=== PATIENT | male | born 1935 | race Caucasian/White ===

== ENCOUNTER 2019-08-31 16:10 | Inpatient (IN) ==
[2019-08-31] MEDS ORDERED: SALINE LOCK IV FLUID XX ONE (17:10)
[2019-08-31] MEDS ORDERED: TYLENOL PO PRN (17:10)
[2019-08-31] MEDS ORDERED: SODIUM CHLORIDE 0.9% INJ PRN (17:10)
[2019-08-31] MEDS ORDERED: PHENERGAN IV PRN (17:10)
[2019-08-31] MEDS ORDERED: SOLU-MEDROL IV ONE (17:10)
[2019-08-31 17:49] LABS: BASO# 0.14 X1000 (0.0-0.2); BASO% 1.4 % (0.0-0.8); EOS# 0.44 X1000 (0.0-0.7); EOS% 4.5 % (0.0-10.0); HEMATOCRIT 27.3 % (42.0-52.0); HEMOGLOBIN 8.1 g/dL (14.0-18.0); IMM GRAN# 0.04 X1000 (0.0-0.04); IMM GRAN% 0.4 % (0.0-0.5); LYMPH# 2.06 X1000 (1.2-3.4); LYMPH% 20.9 % (20.5-51.1); MCHC 29.7 g/dL (33-37); MCV 104.6 FL (81-99); MONO# 1.01 X1000 (0.11-0.59); MONO% 10.3 % (1.7-9.3); MPV 10.8 FL (7.4-10.4); NEUT# 6.16 X1000 (1.4-6.5); NEUT% 62.5 % (42.2-75.2); PLT 189 X1000 (130-400); RBC 2.61 XMIL (4.7-6.1); RDW 14.9 % (11.5-14.5); WBC 9.85 X1000 (4.8-10.8)
[2019-08-31 17:57] LABS: CALCIUM 8.8 mg/dL (8.8-10.2); CREATININE 1.4 mg/dL (0.7-1.2); POTASSIUM 4.6 mmol/L (3.5-5.1)
--- NOTE | 2019-08-31 18:10 | Diag Imaging Result Doc PS360 ---
EXAM: CHEST-2 VIEWS 08/31/2019 HISTORY: COPD TECHNIQUE: PA and lateral chest COMMENT: There our platelike opacities present in the lingula and adjacent to the minor fissure on the right. These apparently were also present on 06/21/2016 and may be due to fibrosis. The pleural effusions which were present previously have apparently resolved. There is pleural thickening on the right which was also present previously. There is a granuloma in the left apex. IMPRESSION: Pulmonary and pleural fibrotic changes. No evidence of acute disease. Electronically signed by Cristo Burns 08/31/2019 6:07 PM
[2019-08-31 18:12] LABS: BASO# 0.06 X1000 (0.0-0.2); BASO% 0.5 % (0.0-0.8); EOS# 0.41 X1000 (0.0-0.7); EOS% 3.7 % (0.0-10.0); HEMATOCRIT 26.9 % (42.0-52.0); HEMOGLOBIN 8.2 g/dL (14.0-18.0); IMM GRAN# 0.07 X1000 (0.0-0.04); IMM GRAN% 0.6 % (0.0-0.5); LYMPH# 2.71 X1000 (1.2-3.4); LYMPH% 24.6 % (20.5-51.1); MCH 30.6 PG (27-31); MCHC 30.5 g/dL (33-37); MCV 100.4 FL (81-99); MONO# 0.68 X1000 (0.11-0.59); MONO% 6.2 % (1.7-9.3); MPV 9.6 FL (7.4-10.4); NEUT# 7.09 X1000 (1.4-6.5); NEUT% 64.4 % (42.2-75.2); PLT 505 X1000 (130-400); RBC 2.68 XMIL (4.7-6.1); RDW 14.6 % (11.5-14.5); WBC 11.02 X1000 (4.8-10.8)
[2019-08-31] MEDS: ROCEPHIN 1 GM in NS 50 ML IV SCH (18:18)
[2019-08-31] MEDS: LOVENOX SUBQ SCH (18:18)
[2019-08-31 18:21] LABS: ALLEN TEST YES; BE -0.7 mmoll (-3.0-3.0); BLOOD TYPE ARTERIAL; HCO3-(ACT) 24.4 mmoll (20.0-26.0); METHB 0.3 % (0.0-1.5); O2(CT) 8.8 mL/dL (15.0-23.0); O2HB 97.6 % (95.0-99.0); PCO2(98.6) 27 mmHg (35-45); PO2(98.6) 137 mmHg (60-100); SAMPLE BLOOD; SAO2 99.9 % (95.0-100.0); THB 6.2 g/dL (11.5-17.4); pH(98.6) 7.52 (7.35-7.45)
[2019-08-31 18:23] LABS: MODALITY ROOM AIR
[2019-08-31] MEDS ORDERED: NS 500 ML IV ONE (19:23)
[2019-08-31] MEDS: HUMULIN R SUBQ SCH (21:11)
[2019-08-31] MEDS: DUONEB (A & A) INH SCH ×2 (21:18→23:27)
[2019-08-31] MEDS: SYMBICORT 160/4.5 MICROGM INHALER INH SCH (21:19)
[2019-08-31] MEDS: NORCO-10 PO PRN (22:49)
[2019-09-01] MEDS: DUONEB (A & A) INH SCH ×6 (04:21→23:04)
[2019-09-01] MEDS: HUMULIN R SUBQ SCH ×4 (06:19→21:40)
[2019-09-01 08:21] LABS: HEMATOCRIT 19.9 % (42.0-52.0); HEMOGLOBIN 5.8 g/dL (14.0-18.0); MCH 29.3 PG (27-31); MCHC 29.1 g/dL (33-37); MCV 100.5 FL (81-99); MPV 9.7 FL (7.4-10.4); RBC 1.98 XMIL (4.7-6.1); RDW 14.4 % (11.5-14.5); WBC 9.13 X1000 (4.8-10.8)
[2019-09-01] MEDS ORDERED: ACTOS PO SCH (09:00)
[2019-09-01] MEDS: ASPIRIN PO SCH ×2 (09:05→12:06)
[2019-09-01] MEDS: AMARYL PO SCH (09:05)
[2019-09-01] MEDS: LOFIBRA PO SCH (09:05)
[2019-09-01] MEDS: DITROPAN XL PO SCH (09:11)
[2019-09-01] MEDS: SOLU-MEDROL IV SCH ×2 (09:11→16:19)
[2019-09-01] MEDS: ACTOS PO SCH (09:11)
[2019-09-01] MEDS: PROTONIX IV SCH (09:16)
[2019-09-01] MEDS: SODIUM CHLORIDE 0.9% INJ SCH (09:17)
--- NOTE | 2019-09-01 09:32 | PROGRESS NOTE ---
DATE: 09/01/2019 SUBJECTIVE: Mr. Judge has a history of chronic respiratory failure with hypoxia secondary to chronic COPD. He was admitted to [facility] with an acute chronic obstructive pulmonary disease exacerbation. His chest x-ray demonstrated pulmonary fibrosis and fibrotic changes, but no effusions or infiltrates were noted. He continues with shortness of breath with minimal activity, such as walking to the bathroom, nonproductive cough, and pleuritic chest pain. He continues to wheeze diffusely. He has been passing dark black bowel movements. He is not having any refractory reflux, sour brash, or dysphagia. We have ordered stools to be checked for occult blood. Blood sugars are fluctuating. Sugars are ranging from 229 to 283. His serum iron was low at 44. OBJECTIVE: Temperature 97.7 degrees, pulse 78, respirations 18, BP 153/53. CV: Regular rate and rhythm. Lungs: Diffuse end expiratory wheezing with forced expiration. Abdomen: Soft and nontender with active bowel sounds. Extremities: Without edema. ASSESSMENT AND PLAN: 1. Chronic respiratory failure with hypoxia secondary to chronic obstructive pulmonary disease with acute COPD exacerbation. He continues with mild shortness of breath, cough, and diffuse wheezing. Sats are ranging from 98 to 100 percent on 2 L of O2. We will continue supplemental O2, Symbicort 160/4.5 two puffs b.i.d., methylprednisolone 80 mg IV q.8 hours and DuoNeb nebulizer treatments. 2. Type 2 rhf-jdhkgab-hqqhcgqtt diabetes mellitus. I suspect that his blood sugars are trending upward due to the steroids. We will continue an 1800 calorie ADA diet, pattern sugars, and Humulin R sliding scale. We will continue Amaryl and Actos. 3. Acute blood loss anemia His HGB and HCT were 5.9 and 19 this am. Serum iron was 44. I will begin Pantoprazole 40mg iv daily, type and screen, and transfuse 2 units of packed red cells. I will consult Dr. Langston for consideration of an EGD. cc: Darien De La Torre MD [facility]
[2019-09-01 10:27] LABS: INR 4.13; PTT 42.6 Seconds (22.3-41.8)
[2019-09-01 11:17] LABS: PROTIME 41.3 Seconds (11.0-16.0)
[2019-09-01] MEDS: SYMBICORT 160/4.5 MICROGM INHALER INH SCH ×2 (11:18→19:30)
[2019-09-01] MEDS: LOVENOX SUBQ SCH (18:47)
[2019-09-01] MEDS: ROCEPHIN 1 GM in NS 50 ML IV SCH (18:52)
--- NOTE | 2019-09-01 21:17 | GASTROENTEROLOGY CONSULTATION ---
DATE: 09/01/2019 REASON FOR CONSULTATION: Anemia. HISTORY OF PRESENT ILLNESS: This is an 83-year-old male who has been seen in our office, but not since his last colonoscopy in 2010. Patient has a history of colon cancer diagnosed in 1999. He had a subtotal colectomy. He had followed routinely for his followup colonoscopies. His last one was in 2010 with a finding of 1 polyp in the rectum that was a hyperplastic polyp. At that time, he was recommended to have a followup colonoscopy in 3 years, but the patient declined. He was then notified the next year and the patient also declined that repeat colonoscopy, and we had not seen him back in the office since his colonoscopy in 2010. The patient does have history of COPD. Apparently, he has had an exacerbation. Patient states he actually ran out of his home oxygen, had increasing shortness of breath, and came in for admission. On evaluation, he was found to have anemia. Patient does report having flu symptoms about 2 weeks ago. He had some episodes of constipation. He had also reported seeing black stools over the last 10 to 14 days. He has noticed occasional dizziness. He does take Coumadin and aspirin. His last Coumadin was Friday evening. The patient currently denies abdominal pain. No reported reflux or heartburn. No reported dysphagia. Again, he had noticed some dark stools. Hemoccult stool test today was positive. He does have orders to receive 2 units of packed red blood cells. Today, his PT/INR was elevated, PT 41.3, INR 4.13, PTT 42.6. Patient's Coumadin is currently on hold. He did receive a Lovenox injection last night. PAST MEDICAL HISTORY: 1. History of colon cancer, diagnosed in 1999; last colonoscopy in 2010 with findings of 1 polyp in the rectum. 2. History of COPD. 3. Asthma. 4. Diabetes. 5. History of prostate cancer. 6. History of kidney stones. 7. Macular degeneration. 8. Cataracts. SURGICAL HISTORY: 1. Subtotal colectomy in 1999. 2. Last colonoscopy in 2010. 3. History of cataract surgery. ALLERGIES: Sulfonamide antibiotics causing hives. HOME MEDICATIONS: 1. Brovana nebulizer inhaler every 12 hours. 2. Aspirin 81 mg daily. 3. Fenofibrate 160 daily. 4. Gabapentin 300 mg daily. 5. Glimepiride 2 mg daily in the morning. 6. Glimepiride 1 mg in the evening. 7. Ditropan 10 mg daily. 8. Actos 5 mg daily. 9. Coumadin 5 mg every night. SOCIAL HISTORY: He quit tobacco use in 1993. He also quit alcohol use. He is . FAMILY HISTORY: Reported family history of tuberculosis in his mother and heart disease. REVIEW OF SYSTEMS: Per History of Present Illness. PHYSICAL EXAMINATION: Vital Signs: Temperature 97.6 degrees, pulse 70, respirations 16, blood pressure 137/42. General: Patient was awake and alert at the time of my evaluation. He is very oriented and is aware of his history. He is in no acute distress. HEENT: Normocephalic, atraumatic. Pupils equal, round, reactive to light. Sclerae nonicteric. Respiratory: Some decreased breath sounds. Otherwise, no wheezing noted at this time. Abdomen: Soft, obese. Positive bowel sounds. Extremities: With maybe mild lower extremity edema noted. Neurologic: Cranial nerves 2 through 12 grossly intact. Patient is awake, alert, oriented to person, place, and time. DIAGNOSTIC RESULTS/LABORATORY: Hematology: WBC 9.13, hemoglobin 5.8, hematocrit 19.9. On admission on 08/31/2019, his hemoglobin and hematocrit were 8.2 and 26.9. MCV 100.5, platelets 416,000. Coagulation: Protime 41.3, INR 4.13, and PTT 42.6. The patient states he has had recent Coumadin level drawn. I am not sure of the exact date, but he said at that time his INR was around 2. Chemistry: Sodium 137, potassium 4.6, chloride 107, CO2 22, BUN 36, creatinine 1.4, glucose 112, calcium 8.8, iron 44. IMAGING: Chest x-ray on 08/31/2019 showed pulmonary and pleural fibrotic changes, otherwise no evidence of acute disease. ASSESSMENT AND PLAN: 1. Chronic obstructive pulmonary disease exacerbation. Patient is on oxygen. His respiratory status has improved. 2. Anemia with a significant drop in his hemoglobin and hematocrit since yesterday. The patient has reported some dark stools. His iron is low. Patient's last colonoscopy was in 2010. He has history of colon cancer. I do not see record of an esophagogastroduodenoscopy. 3. History of colon cancer with last colonoscopy in 2010. Patient was offered a repeat colonoscopy at 3 years and the following year, and patient declined due to his age and him not having problems at the time. 4. Patient has orders to receive 2 units of packed red blood cells. Hold Coumadin. Will repeat his PT/INR in the morning. Depending on those results, we may proceed with esophagogastroduodenoscopy. I have discussed esophagogastroduodenoscopy procedure along with benefits and risks with the patient, and he wishes to proceed if able. I have discussed this case with Dr. Langston. Thank you for this consultation. Dictated by LEDA Yeager for Bob Langston MD cc: LEDA Lozano MD M. Neel Roberts, MD MTDD
[2019-09-01] MEDS: DESYREL PO PRN (21:40)
[2019-09-02] MEDS: SOLU-MEDROL IV SCH ×3 (01:30→17:33)
[2019-09-02] MEDS: DUONEB (A & A) INH SCH ×6 (05:00→23:25)
[2019-09-02] MEDS: HUMULIN R SUBQ SCH ×5 (06:21→23:55)
[2019-09-02] MEDS: SYMBICORT 160/4.5 MICROGM INHALER INH SCH ×2 (08:04→20:04)
[2019-09-02 08:44] LABS: HEMATOCRIT 25.4 % (42.0-52.0); HEMOGLOBIN 8.2 g/dL (14.0-18.0)
[2019-09-02 08:56] LABS: INR 3.39; PROTIME 35.3 Seconds (11.0-16.0)
[2019-09-02 09:08] LABS: CALCIUM 8.6 mg/dL (8.8-10.2); CREATININE 1.2 mg/dL (0.7-1.2)
[2019-09-02] MEDS: SODIUM CHLORIDE 0.9% INJ SCH (09:11)
[2019-09-02] MEDS: PROTONIX IV SCH (09:11)
--- NOTE | 2019-09-02 10:15 | PROGRESS NOTE ---
DATE: 09/02/2019 SUBJECTIVE: Mr. Judge had a history of acute blood loss anemia. On 09/01/2019, his hemoglobin and hematocrit were 5.8 and 19.9. He was given 2 units of packed red blood cells. Hemoglobin and hematocrit were 8.2 and 25.4 this morning. He denies any reflux, sour brash, dysphagia, or further episodes of melena. He has an EGD scheduled for this morning. He has a history of chronic respiratory failure with hypoxia, on nocturnal home oxygen, and was admitted with an acute COPD exacerbation. He is breathing more comfortably. He is maintaining O2 saturations of 96% to 99% on 2 L of oxygen. He has less shortness of breath with ambulation. His cough has improved significantly. OBJECTIVE: Vial Signs: Temperature 98.4 degrees, pulse 66, respirations 14, BP 123/58. CV: Regular rate and rhythm. Lungs: Occasional end-expiratory wheezing with forced expiration, but overall has improved air movement. Abdomen: Soft, nontender, with active bowel sounds. ASSESSMENT AND PLAN: 1. Acute blood loss anemia. He was transfused 2 units of packed red blood cells. His hemoglobin and hematocrit ellie appropriately. There does not seem to be any further oozing at this time or additional blood loss. He is scheduled for an esophagogastroduodenoscopy today. We will continue pantoprazole 40 mg intravenously daily. 2. Chronic respiratory failure with hypoxia with acute chronic obstructive pulmonary disease exacerbation. We will continue supplemental oxygen, DuoNeb nebulizer treatments, and I will reduce the dosage of Solu-Medrol to 40 mg intravenously every 8 hours. cc: Darien De La Torre MD
[2019-09-02] MEDS: AMARYL PO SCH (10:53)
[2019-09-02] MEDS: ASPIRIN PO SCH (10:53)
[2019-09-02] MEDS: DITROPAN XL PO SCH (10:53)
[2019-09-02] MEDS: LOFIBRA PO SCH (10:54)
[2019-09-02] MEDS: ACTOS PO SCH (10:54)
[2019-09-02] MEDS ORDERED: XYLOCAINE-MPF 2% ONE (11:26)
[2019-09-02] MEDS ORDERED: DIPRIVAN 1% ONE (11:26)
[2019-09-02] MEDS ORDERED: NS 500 ML IV ONE (12:31)
[2019-09-02] MEDS: ROCEPHIN 1 GM in NS 50 ML IV SCH (17:33)
--- NOTE | 2019-09-02 21:04 | GASTROENTEROLOGY PROGRESS NOTE ---
DATE: 09/02/2019 SUBJECTIVE: Mr. Judge is lying in bed and reported no GI complaints. He has not had any abdominal pain, nausea or vomiting. He has been tolerating his diet well. He was scheduled for EGD today, but unfortunately his INR is not down yet. His PT was 35.3 with INR of 3.39. He has not shown any signs of active bleeding now. His hemoglobin and hematocrit have gone up to 8.2 and 25.4. OBJECTIVE: Vital signs: Temperature 98.7 degrees, pulse 70 per minute, breathing 14, blood pressure 125/45. He has a nasal cannula in place. Abdomen is slightly obese, soft, nontender. Bowel sounds audible. LABORATORY DATA: Labs reviewed, which showed hemoglobin 8.2, hematocrit 25.3. PT 35.3, INR 3.39. IMPRESSION AND PLAN: Gastrointestinal bleed secondary to Coumadin toxicity. At this point no active bleeding noted. His hemoglobin and hematocrit have improved after transfusion. He needs endoscopic evaluation to ascertain the site of his bleeding, but unfortunately his PT/INR is elevated at this point, high enough for his endoscopy to be contraindicated. There is no emergency since he is not actively bleeding now. I would let the PT/INR improve, and when it has settled down to normal we will proceed with endoscopy, either esophagogastroduodenoscopy or esophagogastroduodenoscopy with colonoscopy. It can be done as an inpatient or an outpatient, again, depending on the availability. By that time his respiratory condition will be better also. That will be better for him to be sedated at that time. I have explained to him the plan. He understands. All of his pertinent questions were answered. cc: MD Darien Owusu MD
[2019-09-03] MEDS: SOLU-MEDROL IV SCH ×3 (01:06→21:29)
[2019-09-03] MEDS: DUONEB (A & A) INH SCH ×6 (04:48→23:07)
[2019-09-03] MEDS: HUMULIN R SUBQ SCH ×4 (06:22→21:30)
[2019-09-03 07:38] LABS: HEMATOCRIT 28.1 % (42.0-52.0); HEMOGLOBIN 8.4 g/dL (14.0-18.0)
[2019-09-03 07:39] LABS: INR 2.21; PROTIME 25.1 Seconds (11.0-16.0)
[2019-09-03] MEDS: ACTOS PO SCH (08:03)
[2019-09-03] MEDS: LOFIBRA PO SCH (08:03)
[2019-09-03] MEDS: DITROPAN XL PO SCH (08:03)
[2019-09-03] MEDS: ASPIRIN PO SCH (08:03)
[2019-09-03] MEDS: PROTONIX IV SCH (08:03)
[2019-09-03] MEDS: AMARYL PO SCH (08:03)
[2019-09-03] MEDS: SODIUM CHLORIDE 0.9% INJ SCH (08:03)
--- NOTE | 2019-09-03 09:12 | Diag Imaging Result Doc PS360 ---
EXAM: CHEST-2 VIEWS HISTORY: COPD TECHNIQUE: Two views COMPARISON: 08/31/2019 FINDINGS: The lungs are hyperexpanded. No cardiomegaly. There are increased interstitial markings in the mid lungs and in the left base similar to the prior exam. No consolidation. No pleural effusions. Left apical granuloma. IMPRESSION: Emphysema with fibrosis Electronically signed by Tree Kim 09/03/2019 9:10 AM
[2019-09-03] MEDS: SYMBICORT 160/4.5 MICROGM INHALER INH SCH ×2 (09:26→19:43)
--- NOTE | 2019-09-03 12:27 | PROGRESS NOTE ---
DATE: 09/03/2019 HISTORY: Mr. Judge has a longstanding history of chronic respiratory failure with hypoxia for which he wears nocturnal home oxygen at 2 L per nasal cannula. He was admitted to [facility] with an acute chronic obstructive pulmonary disease exacerbation. Clinically, he continues to improve. He is maintaining O2 saturations of 100% on 2 L of O2. He has much less. He has less dyspnea with getting out of bed and walking to the bathroom. His cough has largely resolved. He also has acute blood loss anemia. His hemoglobin and hematocrit were 8.2 and 26.9 on admission. His hemoglobin and hematocrit dropped to 5.8 and 19.9 on 09/01. He was given. He was transfused 2 units of packed red blood cells. He has not had any further episodes of bleeding. His hemoglobin and hematocrit are stable at 8.4 and 28.1. His INR has dropped to 2.2 off the Coumadin. He denies any refractory reflux, sour brash or dysphagia. His stools are still dark. 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 Blood sugars are fluctuating on IV steroids. PHYSICAL EXAMINATION: Vital Signs: Temperature 97.6 degrees, respirations 18, BP 130/52. Cardiovascular: Regular rate and rhythm. Lungs: Distant breath sounds with increased period of expiration. I do not appreciate any significant wheezing. Abdomen: Soft, nontender, with active bowel sounds. ASSESSMENT AND PLAN: 1. Acute chronic obstructive pulmonary disease exacerbation. We will continue supplemental O2 at 2 L per nasal cannula, Symbicort 160/4.5 two puffs b.i.d. and DuoNeb nebulizer treatments. I am not sure as to whether or not he will need continuous home oxygen. I am going to check a room air oxygen level at rest. I will also check a room air oxygen level with exercise. If his O2 saturations drop below 88% at rest or with exertion that improves with supplemental O2, I believe that he would qualify for continuous home oxygen. 2. Acute blood loss anemia. I suspect that he has had an upper GI bleed. We will continue pantoprazole 40 mg IV daily and monitor his blood counts carefully. Once his INR is subtherapeutic, we will proceed with an esophagogastroduodenoscopy. cc: Darien De La Torre MD
[2019-09-03] MEDS: ROCEPHIN 1 GM in NS 50 ML IV SCH (17:41)
--- NOTE | 2019-09-03 20:16 | GASTROENTEROLOGY PROGRESS NOTE ---
DATE: 09/03/2019 SUBJECTIVE: The patient was awake and alert, in no acute distress. He was also seen by Dr. Langston. He denies complaints today. He states he did have an a bowel movement early this morning that was still dark in color. Hemoglobin and hematocrit after 2 units of packed red blood cells are 8.4 and 28.1. The patient has had a unit of fresh frozen plasma on 09/02/2019, and 2 units of packed red blood cells. Today, the patient's PT/INR is 25.1 and 2.21. We had postponed EGD until his INR is at an acceptable range to proceed with endoscopy. OBJECTIVE: Vital Signs: Temperature 97.6, pulse 68, respirations 16, blood pressure 130/52. General: The patient is awake, alert, in no acute distress. LABORATORY: Hematology: Hemoglobin 8.4, hematocrit 28.1. Coagulation: Pro time 25.1, INR 2.21. Chemistry: Sodium 142, potassium 4.0, chloride 110, CO2 of 23, BUN 40, creatinine 1.2, glucose 204. ASSESSMENT AND PLAN: 1. Gastrointestinal bleed secondary to Coumadin toxicity. 2. Elevated PT/INR. This has improved. We will wait until a more acceptable range to proceed with endoscopy. If patient is still in the hospital on Friday, will plan to proceed with EGD as an inpatient on Friday or Friday. If patient is discharged over the weekend, would recommend he call the office to schedule outpatient procedure. Further plans will be made as needed. Patient was also seen by Dr. Langston. Dictated by LEDA Yeager for Bob Langston MD cc: LEDA Lozano MD M. Neel Roberts, MD
[2019-09-03] MEDS: DESYREL PO PRN (21:29)
[2019-09-04] MEDS: DUONEB (A & A) INH SCH ×6 (03:12→22:53)
[2019-09-04] MEDS: HUMULIN R SUBQ SCH ×4 (06:29→22:46)
[2019-09-04] MEDS: SYMBICORT 160/4.5 MICROGM INHALER INH SCH ×2 (08:26→20:33)
[2019-09-04 09:26] LABS: HEMATOCRIT 28.8 % (42.0-52.0); HEMOGLOBIN 8.6 g/dL (14.0-18.0)
[2019-09-04] MEDS: SOLU-MEDROL IV SCH ×2 (09:47→22:46)
[2019-09-04] MEDS: SODIUM CHLORIDE 0.9% INJ SCH (09:48)
[2019-09-04] MEDS: PROTONIX IV SCH (09:48)
[2019-09-04] MEDS: LOFIBRA PO SCH (09:49)
[2019-09-04] MEDS: ASPIRIN PO SCH (09:49)
[2019-09-04] MEDS: ACTOS PO SCH (09:49)
[2019-09-04] MEDS: AMARYL PO SCH (09:49)
[2019-09-04] MEDS: DITROPAN XL PO SCH (09:49)
[2019-09-04] MEDS: SPIRIVA INH SCH (11:44)
--- NOTE | 2019-09-04 13:43 | PROGRESS NOTE ---
DATE: 09/04/2019 SUBJECTIVE: Mr. Judge was admitted to [facility] with an acute COPD exacerbation. He reported that he was more short of breath this morning while bathing and brushing his teeth. His O2 saturations have ranged from 93 to 95 percent on 3 L of O2. Blood counts remain stable. His hemoglobin and hematocrit were 8.6 and 28.8 this morning. He is still passing dark black bowel movements. OBJECTIVE: Vital signs: He is afebrile, pulse 72, respirations 16, blood pressure 121/56. Cardiovascular: Regular rate and rhythm. Lungs: Distant breath sounds with increased period of expiration. There is occasional end-expiratory wheezing. Abdomen: Soft, nontender, with active bowel sounds. ASSESSMENT AND PLAN: 1. Acute blood loss anemia secondary to upper gastrointestinal bleed. His blood counts are stable. He is still significantly anemic. He is still having some mild shortness of breath. We will continue to hold the Coumadin and I will recheck a protime in the morning. Given his worsening shortness of breath this morning, I do not feel comfortable letting him go home. I will talk to Dr. Langston about proceeding with an esophagogastroduodenoscopy while he is hospitalized on Friday. 2. Chronic respiratory failure with hypoxia secondary to chronic obstructive pulmonary disease. He was admitted with an acute chronic obstructive pulmonary disease exacerbation complicated by acute blood loss anemia. We will continue Symbicort 160/4.5 two puffs b.i.d., DuoNeb nebulizer treatments q.4 hours, supplemental O2, and I will add Spiriva. As stated earlier, he has a history of chronic respiratory failure with hypoxia. He has been wearing O2 at 2 L per nasal cannula while sleeping. While exercising on room air, his O2 saturation dropped to 86%. His O2 saturation was around 90 on 2 L and increased to 93 to 94 percent on 3 L. I believe that he will need continuous home oxygen and would benefit from portable oxygen. cc: Darien De La Torre MD
[2019-09-04] MEDS: ROCEPHIN 1 GM in NS 50 ML IV SCH (17:56)
[2019-09-04] MEDS: DESYREL PO PRN ×2 (22:45→22:49)
[2019-09-05] MEDS: DUONEB (A & A) INH SCH ×6 (02:59→23:40)
[2019-09-05] MEDS: HUMULIN R SUBQ SCH ×4 (06:06→21:39)
[2019-09-05] MEDS: SYMBICORT 160/4.5 MICROGM INHALER INH SCH ×2 (08:58→20:06)
[2019-09-05] MEDS: SPIRIVA INH SCH (08:59)
--- NOTE | 2019-09-05 09:30 | PROGRESS NOTE ---
DATE: 09/05/2019 SUBJECTIVE: Mr. Judge was admitted to [facility] with an acute COPD exacerbation. He normally wears O2 at 2 L per nasal cannula while sleeping. He seems to be breathing more comfortably. He still has some scattered rhonchi. O2 saturations are ranging from 99% to 100% on 3 L of O2. He has no significant cough. He also had acute blood loss anemia secondary to suspected upper GI bleed. Blood counts have remained stable. He is still passing some dark bowel movements. ProTime is trending down. He denies any reflux, sour brash, or dysphagia. OBJECTIVE: Vital Signs: Temperature 98 degrees, pulse 92, respirations 18, BP 117/47. CV: Regular rate and rhythm. Lungs: Scattered rhonchi. Abdomen: Soft, nontender, with active bowel sounds. ASSESSMENT AND PLAN: 1. Chronic respiratory failure with hypoxia secondary to chronic obstructive pulmonary disease exacerbation. We will continue Spiriva, Symbicort, and DuoNeb nebulizer treatments. 2. Acute blood loss anemia. I will recheck a ProTime with INR today. If his INR is subtherapeutic, we will proceed with an esophagogastroduodenoscopy in the morning. cc: Darien De La Torre MD
[2019-09-05 09:59] LABS: INR 1.31; PROTIME 16.5 Seconds (11.0-16.0)
[2019-09-05] MEDS: ASPIRIN PO SCH (10:42)
[2019-09-05] MEDS: ACTOS PO SCH (10:42)
[2019-09-05] MEDS: DITROPAN XL PO SCH (10:43)
[2019-09-05] MEDS: PROTONIX IV SCH (10:43)
[2019-09-05] MEDS: LOFIBRA PO SCH (10:43)
[2019-09-05] MEDS: SOLU-MEDROL IV SCH ×2 (10:44→21:40)
[2019-09-05] MEDS: AMARYL PO SCH (10:44)
[2019-09-05] MEDS: ROCEPHIN 1 GM in NS 50 ML IV SCH (18:34)
[2019-09-05] MEDS: DESYREL PO PRN (21:43)
[2019-09-06] MEDS: DUONEB (A & A) INH SCH ×4 (03:15→15:11)
[2019-09-06] MEDS: HUMULIN R SUBQ SCH ×4 (06:01→15:48)
[2019-09-06] MEDS: SYMBICORT 160/4.5 MICROGM INHALER INH SCH (07:33)
[2019-09-06] MEDS: SPIRIVA INH SCH (07:33)
[2019-09-06 08:20] LABS: INR 1.27; PROTIME 16.1 Seconds (11.0-16.0)
[2019-09-06 08:23] LABS: HEMATOCRIT 27.2 % (42.0-52.0); HEMOGLOBIN 7.9 g/dL (14.0-18.0)
[2019-09-06] MEDS: SOLU-MEDROL IV SCH (09:03)
[2019-09-06] MEDS: PROTONIX IV SCH (09:03)
[2019-09-06] MEDS: SODIUM CHLORIDE 0.9% INJ SCH (09:03)
[2019-09-06] MEDS ORDERED: DIPRIVAN 1% ONE ×2 (12:27→13:15)
[2019-09-06] MEDS ORDERED: XYLOCAINE-MPF 2% ONE (12:45)
--- NOTE | 2019-09-06 13:29 | ENDOSCOPY OPERATIVE NOTE ---
[facility] ENDOSCOPY OPERATIVE NOTE , EGD PROCEDURE REPORT EXAM DATE: 09/06/2019 PATIENT NAME: Vin Judge ATTENDING: Bob Langston MD MR#: [id number] REFERRING PHYSICIAN: Jose Elias De La Torre MD : [id number] CASE#: [id number] STATUS: inpatient INDICATIONS: The patient is a 83 yr old male here for an EGD due to acute post hemorrhagic anemia an d melena. PROCEDURE PERFORMED: EGD w/ control of bleeding MEDICATIONS: Per Anesthesia CONSENT: The patient understands the risks and benefits of the procedure and understands that these r isks include, but are not limited to: sedation, allergic reaction, infection, perforation and/or bleeding. Alternative means of evaluation and treatment include, among others: physical exam, x-rays, and/or surgical intervention. The patient elects to proceed with this endoscopic procedure. DESCRIPTION OF PROCEDURE: During intra-op preparation period all mechanical and medical equipment was checked for proper function. Hand hygiene and appropriate measures for infection prevention was taken. After the risks, benefits and alternatives of the procedure were thoroughly explained, Informed consent was verified, confirmed and timeout was successfully executed by the treatment team. The patient was anesthetized with topical anesthesia and the [id number]-[id number] ([id number]) endoscope was introduced through the mouth and advanced to the second portion of the duoden um. Retroflexion was performed in the stomach and revealed no abnormalities. The gastroscope was then slowly withdraw n and removed. ESOPHAGUS: The mucosa of the esophagus appeared normal. STOMACH: Four round and not bleeding. 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 Bipolar (BICAP) cautery with a 7Fr probe was applied to the sites for 5 sec onds using 15 mueller power. Moderate pressure was applied to the cautery site with good treatment effect. There w as no evidence of Ulcer, tumors or masses. The stomach otherwise appeared normal. DUODENUM: Four not bleeding arteriovenous malformations measuring 5mm in size were found in the duode nal bulb and 2nd part duodenum. Submucosal injection of 4ml of epinephrine 1:10,000 was injected around the bleeding site with good treatment effect. Bipolar (BICAP) cautery with a 7Fr probe was applied to the sites for 5 seconds us ing 15 mueller power. Moderate pressure was applied to the cautery site with good treatment effect. There was no evidence of ulcer, tumor or mass. ADVERSE EVENTS: There were no complications. IMPRESSIONS: 1. The mucosa of the esophagus appeared normal 2. 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 The stomach otherwise appeared normal 4. 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 Resume pre-procedure medications 2. Resume current medications 3. Avoid non-steroid anti-inflammatory drugs 4. Transfer to floor 5. Follow-up with Dr. 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 staff has captured with the software. The verification of the translation of this report to the ICD and CPT co rao and modifiers is the sole responsibility of the health care institution and practicing physician where this report was generated. [employer] will not be held responsible for the validity of the ICD and CPT codes i ncluded on this report. A assumes no liability for data contained or not contained herein. CPT is a registered tra demark of the [employer]. PATIENT NAME: Vin Judge MR#: [id number]
[2019-09-06] MEDS: NORCO-10 PO PRN (14:41)
[2019-09-06 15:05] VITALS: BP 127/72
[2019-09-06] MEDS: ASPIRIN PO SCH (15:39)
[2019-09-06] MEDS: AMARYL PO SCH (15:39)
[2019-09-06] MEDS: DITROPAN XL PO SCH (15:39)
[2019-09-06] MEDS: LOFIBRA PO SCH (15:39)
[2019-09-06] MEDS: ACTOS PO SCH (15:41)
[2019-09-06] MEDS ORDERED: MEDROL PO SCH (17:00)
[2019-09-06] MEDS ORDERED: MEDROL DOSEPAK PO SCH (17:15)
--- NOTE | 2019-09-06 17:15 | Diag Imaging Result Doc PS360 ---
EXAM: ABDOMEN FLAT/UPRIGHT INDICATION: abdominal bloating and distension TECHNIQUE: 3 views COMPARISON: 06/17/2016 FINDINGS: There are a few gas-filled loops of small bowel with mild distention that are nonspecific. This may be related to ileus or an EGD that was performed earlier today. Low-grade obstruction is less likely but cannot completely be excluded. There are several metallic clips rejecting over the abdomen and pelvis. No large volume free abdominal gas is appreciated. There are degenerative changes involving the lumbar spine. IMPRESSION: Nonspecific loops of mildly gas distended small bowel. Please see above discussion. Electronically signed by Bebeto Myles 09/06/2019 5:12 PM
[2019-09-06] MEDS ORDERED: FERROUS SULFATE PO SCH (21:00)
--- NOTE | 2019-10-08 20:52 | DISCHARGE SUMMARY ---
ADMISSION DATE: 08/31/2019 DISCHARGE DATE: 09/06/2019 DISCHARGE DIAGNOSES: 1. Chronic respiratory failure with hypoxia. 2. Chronic obstructive pulmonary disease with acute exacerbation. 3. 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 4. Mixed hyperlipidemia. 5. 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 DISCHARGE INSTRUCTIONS: 1. Return to clinic in 1 week to see me, Dr. Richie De La Torre, in anticipation of a transition of care visit. 2. Activity as tolerated. 3. GI soft diet. MEDICATIONS: Brovana nebulized b.i.d., Symbicort 160/4.5 two puffs b.i.d., fenofibrate 160 mg daily, ferrous sulfate 325 mg b.i.d., gabapentin 300 mg at night, Ditropan 10 mg daily, pantoprazole 40 mg daily, pioglitazone 15 mg daily, Spiriva 1 inhalation daily, Coumadin 2.5 mg at bedtime. Mr. Judge has a history of chronic respiratory failure with hypoxia secondary to chronic COPD. He had been wearing nocturnal home oxygen. His initial chest x-ray demonstrated pulmonary fibrosis and fibrotic changes. No infiltrates were noted. He was continued on supplemental O2, DuoNeb nebulizer treatments, Spiriva and intravenous methylprednisolone. He reported that he was passing dark colored bowel movements. His hemoglobin, hematocrit were 5.9 and 19. His serum iron was 44. We started pantoprazole 40 mg IV daily and we typed, crossmatched and transfused 2 units of packed red blood cells. Dr. Langston performed an EGD which demonstrated multiple AV malformations which he cauterized. He resumed clear liquid diet and advanced his diet as tolerated. His blood counts were 7.9 and 27.2 at discharge. We did not feel that there was any further active bleeding. We will continue ferrous sulfate 325 mg b.i.d. We will make arrangements for him to have a colonoscopy as an outpatient. I certainly felt that the significant anemia greatly exacerbated his underlying COPD exacerbation, with aggressive pulmonary measures and transfusions his breathing continued to improve. On 09/04/2019 we did further testing to see if he would benefit from continuous home oxygen. He had been wearing O2 at 2 L per nasal cannula while sleeping. While exercising on room air his O2 saturation dropped to 86%. His O2 saturation increased to 93 to 94 percent on 3 L while exercising. We felt that he would qualify for home oxygen. Arrangements were made to provide oxygen for the patient. Having reached maximum hospital benefit the patient was discharged in stable condition. cc: Darien De La Torre MD
== END 2019-09-06 18:26 | disposition home or self-care (01) | DRG 190 ==
LOC: DIRADM 16:10 → EDIPHOLD 16:47 → 3N 19:56
PROVIDERS: ADMIT Internal Medicine; ATTEND Internal Medicine
PROC: EN.HEAT (2019-09-06 13:03)